=== PATIENT | female | born 1970 | race Caucasian/White ===

== ENCOUNTER 2020-10-05 11:11 | Emergency (ER) | payer MEDICAID, MEDICARE ==
[~2020-10-05] VITALS: Ht 167.6 cm; Wt 149.7 kg
[2020-10-05] MEDS ORDERED: RISP2TAB5 PO (11:33)
[2020-10-05] MEDS ORDERED: CITA20TA19 PO (11:33)
[2020-10-05 12:32] LABS: BASOPHILS % (AUTO) 0.3 % (0.0-2.0); EOSINOPHILS # (AUTO) 0.2 K/uL (0.0-0.7); EOSINOPHILS % (AUTO) 2.5 % (0.0-7.0); HEMATOCRIT 37.4 % (31.2-41.9); HEMOGLOBIN 12.2 g/dL (10.9-14.3); LYMPHOCYTES % (AUTO) 28.2 % (20.5-51.5); MEAN CORPUSCULAR HEMOGLOBIN 29.1 uug (24.7-32.8); MEAN CORPUSCULAR HGB CONC 33 g/dL (32.3-35.6); MEAN CORPUSCULAR VOLUME 89.3 fL (75.5-95.3); MONOCYTES # (AUTO) 0.4 K/uL (2.0-10.0); MONOCYTES % (AUTO) 5.8 % (0.0-11.0); NEUTROPHILS # (AUTO) 4.5 K/uL (1.8-8.9); NEUTROPHILS % (AUTO) 63.2 % (38.5-71.5); PLATELET COUNT (AUTO) 260 K/uL (179-408); RED BLOOD CELL COUNT(AUTO) 4.19 MIL/uL (3.63-4.92); WHITE BLOOD COUNT (AUTO) 7.2 K/uL (3.8-11.8)
[2020-10-05 12:44] LABS: CARBON DIOXIDE 26 mmol/L (21-32); CHLORIDE 102 mmol/L (98-107); CREATININE 0.7 mg/dL (0.6-1.3); GLUCOSE 141 mg/dL (74-106); POTASSIUM 3.9 mmol/L (3.5-5.1); UREA NITROGEN, BLOOD 19 mg/dL (7-18)
[2020-10-05 12:46] LABS: ETHANOL < 3 MG/DL (0-0)
[2020-10-05 12:49] LABS: ALANINE AMINOTRANSFERASE 24 U/L (14-59); ALKALINE PHOSPHATASE 65 U/L (50-136); ASPARTATE AMINOTRANSFERASE 12 U/L (15-37); BILIRUBIN,DIRECT 0.1 mg/dL (0.0-0.2); BILIRUBIN,TOTAL 0.5 mg/dL (0.2-1.0); TOTAL PROTEIN, SERUM 7.6 g/dL (6.4-8.2)
[2020-10-05 12:50] LABS: ACETAMINOPHEN < 2.0 ug/mL (10-30)
[2020-10-05 12:57] LABS: THYROID STIMULATING HORMONE 13.535 mIU/mL (0.358-3.740)
--- NOTE | 2020-10-05 13:28 | NUR ---
Pt is awake A/O x4, answering all questions appropiatly when speaking w/ DR Farris. Pt is requesting social service. Kanchan Coates LCSW notified and will see pt kati.
--- NOTE | 2020-10-05 13:40 | NUR ---
Kanchan Coates LCSW, at the bedside.
[2020-10-05] MEDS ORDERED: OLANZAPINE 5 MG TABLET ONE (13:53)
[2020-10-05] MEDS: OLANZAPINE 5 MG TABLET PO ONE (13:56)
[2020-10-05] MEDS ORDERED: OLANZAPINE 10 MG VIAL IM ONE (13:56)
[2020-10-05] MEDS: OLANZAPINE 10 MG VIAL IM ONE (14:05)
--- NOTE | 2020-10-05 15:12 | NUR ---
Pt sleeping in bed, no distress noted.
--- NOTE | 2020-10-05 16:00 | NUR ---
Pt still appears to be unable to stay awake more than a few seconds.
--- NOTE | 2020-10-05 16:58 | NUR ---
Pt difficult to arouse again, still only awakens for a few seconds at a time.
--- NOTE | 2020-10-05 18:21 | NUR ---
Gave pt d/c instructions, pt became irate because she did not want to leave, refused to sign d/c documents. Security was called to escort pt out of hospital.
== END 2020-10-05 18:28 | disposition home or self-care (01) ==
LOC: EDBD 11:11 → ER 11:11
DX: F20.0 Paranoid schizophrenia (principal); Z59.0 Homelessness; Z20.822 Contact with and (suspected) exposure to COVID-19; R94.6 Abnormal results of thyroid function studies; I70.0 Atherosclerosis of aorta; E66.9 Obesity, unspecified; Z68.43 Body mass index [BMI] 50.0-59.9, adult; Z99.3 Dependence on wheelchair; F32.9 Major depressive disorder, single episode, unspecified
CPT/HCPCS: 70030-TC; 70450; 71045; 84443; 85025; 85730; 93005; A4663; C1758; G0480; J2358; J3490

== ENCOUNTER 2020-10-05 22:09 | Emergency (ER) | payer MEDICAID, MEDICARE ==
[~2020-10-05] VITALS: Ht 162.6 cm; Wt 113.4 kg
[~2020-10-05 22:09] MED LIST: CITA20TA19 PO; RISP2TAB5 PO
--- NOTE | 2020-10-05 23:26 | NUR ---
CALLED 3 TIMES, NO ASNSWER. PT LEFT W/O BEING SEEN.
== END 2020-10-05 23:26 | disposition left against medical advice (07) ==
LOC: ER 22:11
DX: Z75.3 Unavailability and inaccessibility of health-care facilities (principal)